=== PATIENT | male | born 1975 | race Caucasian/White ===

== ENCOUNTER 2023-04-22 06:47 | Emergency (ER) | payer BC, OTHER ==
[2023-04-22 07:27] LABS: BASOPHILS PERCENT AUTO 0.5 % (0.2-1.2); EOSINOPHILS ABSOLUTE AUTO 0.1 x10^3/uL (0.0-0.5); EOSINOPHILS PERCENT AUTO 1.5 % (0.0-4.0); HEMATOCRIT 41.9 % (40.0-52.0); HEMOGLOBIN 14.5 g/dL (14.0-18.0); IMMATURE GRAN ABSOLUTE AUTO 0.02 x10^3/uL (0.00-0.07); LYMPHOCYTES ABSOLUTE AUTO 1.7 x10^3/uL (1.0-4.8); MEAN CORPUSCULAR HEMOGLOBIN 29.7 pg (26.0-32.0); MEAN CORPUSCULAR HGB CONC 34.6 g/dL (32.0-36.0); MEAN CORPUSCULAR VOLUME 85.9 fL (78.0-93.0); MONOCYTES ABSOLUTE AUTO 0.6 x10^3/uL (0.0-0.8); MONOCYTES PERCENT AUTO 9.7 % (2.0-11.0); NEUTROPHILS ABSOLUTE AUTO 3.6 x10^3/uL (1.8-7.7); PLATELET COUNT,PLT 273 x10^3/uL (130-400); RED BLOOD CELL COUNT 4.88 x10^6/uL (4.5-6.0)
[2023-04-22 07:47] LABS: INR 1.1 (2.0-3.5); PROTHROMBIN TIME 11.3 SEC (9.5-12.2); PTT,PARTIAL THROMBOPLSTIN TIME 22.6 SEC (23.6-33.6)
[2023-04-22 07:58] LABS: A/G RATIO 1.31; ALBUMIN 4.2 g/dL (3.4-5.0); BILIRUBIN TOTAL 0.8 mg/dL (0.2-1.0); CREATININE 1.1 mg/dL (0.70-1.30); EST CRCL DRUG DOSING (CG) 90.32 mL/min; MAGNESIUM 1.9 mg/dL (1.8-2.4); POTASSIUM,K 4.2 mmol/L (3.5-5.1); PROTEIN TOTAL,TP 7.4 g/dL (6.4-8.2); TSH ULTRASENSITIVE 1.125 uIU/mL (0.358-3.74)
[2023-04-22 08:04] LABS: ANION GAP 12.2 mmol/L (5-15)
== END 2023-04-22 08:17 | disposition home or self-care (01) ==
LOC: SUPCPDRO 06:47 → VM.ED 06:47
DX: R55 Syncope and collapse (principal); Z91.030 Bee allergy status
CPT/HCPCS: 36415; 80053; 83735; 84443; 84484; 85025; 85610; 85730; 93010; 99284